=== PATIENT | male | born 1965 | race Two or more races ===

== ENCOUNTER → 2020-01-12 | Outpatient (CLI) | payer BC, OTHER | END | disposition home or self-care (01) | LOC: CFH 07:51 | PROVIDERS: ATTEND Internal Medicine Geriatric Medicine | DX: Z13.6 Encounter for screening for cardiovascular disorders (principal); R07.9 Chest pain, unspecified; R94.31 Abnormal electrocardiogram [ECG] [EKG] | CPT/HCPCS: 75571 ==

== ENCOUNTER → 2020-01-21 | Outpatient (CLI) | payer BC, OTHER | END | disposition home or self-care (01) | LOC: CARD 08:21 | PROVIDERS: ATTEND Internal Medicine Geriatric Medicine | DX: I25.84 Coronary atherosclerosis due to calcified coronary lesion (principal); R07.9 Chest pain, unspecified; R94.31 Abnormal electrocardiogram [ECG] [EKG]; I10 Essential (primary) hypertension; E78.2 Mixed hyperlipidemia; R73.03 Prediabetes; E55.9 Vitamin D deficiency, unspecified | CPT/HCPCS: 93017; 93350 ==